=== PATIENT | female | born 1985 | race Caucasian/White ===

== ENCOUNTER 2020-07-05 20:24 | Observation (INO) | payer MEDICAID, OTHER ==
[~2020-07-05] VITALS: Ht 149.9 cm; Wt 61.7 kg
[2020-07-05] MEDS ORDERED: ACETAMINOPHEN EXTRA STRENGTH 500 MG TABLET ONE (21:40)
[2020-07-05] MEDS ORDERED: ACETAMINOPHEN EXTRA STRENGTH 500 MG TABLET PO SCH (21:45)
== END 2020-07-05 22:10 | disposition home or self-care (01) ==
LOC: EDH 20:24 → LDH 20:25
PROVIDERS: ADMIT Specialist; ATTEND Specialist
DX: O26.892 Other specified pregnancy related conditions, second trimester (principal); R10.30 Lower abdominal pain, unspecified; Z87.891 Personal history of nicotine dependence; Z3A.21 21 weeks gestation of pregnancy
CPT/HCPCS: 80305; 81001; 99284; G0378

== ENCOUNTER 2020-07-06 15:41 | Observation (INO) | payer MEDICAID ==
[~2020-07-06] VITALS: Ht 149.9 cm; Wt 60.8 kg
[2020-07-06] MEDS ORDERED: LACTATED RINGERS 1000ML IV SCH (16:15)
[2020-07-06 16:25] LABS: AMPHET/METH SCREEN,URINE NEGATIVE (NEGATIVE); BARBITURATE SCREEN, URINE NEGATIVE (NEGATIVE); BENZODIAZEPINES SCREEN,URINE NEGATIVE (NEGATIVE); CANNABINOID SCREEN,URINE POSITIVE (NEGATIVE); COCAINE SCREEN,URINE NEGATIVE (NEGATIVE); OPIATE SCREEN,URINE NEGATIVE (NEGATIVE); PHENCYCLIDINE SCREEN,URINE NEGATIVE (NEGATIVE)
== END 2020-07-06 18:26 | disposition home or self-care (01) ==
LOC: LDH 15:41
PROVIDERS: ADMIT Specialist; ATTEND Specialist
DX: O60.02 Preterm labor without delivery, second trimester (principal); R10.9 Unspecified abdominal pain; Z3A.21 21 weeks gestation of pregnancy
CPT/HCPCS: 76805; 80305; 96360; G0378 ×2; J7120

== ENCOUNTER 2020-10-26 09:00 | Inpatient (IN) | payer MEDICAID ==
[~2020-10-26] VITALS: Ht 149.9 cm; Wt 70.3 kg
[2020-11-03] MEDS ORDERED: LACTATED RINGERS 1000ML 1,000 ML IV SCH (05:45)
[2020-11-03] MEDS ORDERED: CEFAZOLIN SODIUM 1 GM VIAL IVP PRN (05:45)
[2020-11-03 06:44] LABS: AMPHET/METH SCREEN,URINE NEGATIVE (NEGATIVE); BARBITURATE SCREEN, URINE NEGATIVE (NEGATIVE); BENZODIAZEPINES SCREEN,URINE NEGATIVE (NEGATIVE); CANNABINOID SCREEN,URINE NEGATIVE (NEGATIVE); COCAINE SCREEN,URINE NEGATIVE (NEGATIVE); OPIATE SCREEN,URINE NEGATIVE (NEGATIVE); PHENCYCLIDINE SCREEN,URINE NEGATIVE (NEGATIVE)
[2020-11-03 06:51] LABS: HEMATOCRIT 32.8 % (36-48); MEAN CORPUSCULAR HEMOGLOBIN 28.1 pg (27.0-33.0); MEAN CORPUSCULAR HGB CONC 33.5 g/dL (32.0-36.0); MEAN CORPUSCULAR VOLUME 83.7 fL (79-99); RED BLOOD CELL COUNT(AUTO) 3.92 MIL/uL (4.00-5.50); RED CELL DISTRIBUTION WIDTH 12.9 % (11.0-15.5); WHITE BLOOD COUNT (AUTO) 11.5 K/uL (4.8-10.8)
[2020-11-03 07:37] VITALS: BP 120/80
[2020-11-03] MEDS ORDERED: PNV11TAB5 PO (07:41)
[2020-11-03] MEDS ORDERED: NEOM28OI31 TP (07:42)
[2020-11-03] MEDS ORDERED: OXYTOCIN-LR 20 UNITS/1000 ML 1,000 ML IV ONE ×2 (08:12→09:37)
[2020-11-03] MEDS ORDERED: FENTANYL CITRATE PF 50 MCG/1 ML 2ML VIAL ONE (08:41)
[2020-11-03] MEDS ORDERED: ONDANSETRON HCL 4 MG/2 ML VIAL ONE ×2 (08:41→11:44)
[2020-11-03] MEDS ORDERED: DURAMORPH PF1 MG/ML 10ML AMP IV ONE (08:41)
[2020-11-03] MEDS ORDERED: PHENYLEPHRINE HCL 10 MG/ML 1ML VIAL IV ONE (09:14)
[2020-11-03] MEDS ORDERED: EPHEDRINE SULFATE 50 MG/ML AMPULE ONE (09:19)
[2020-11-03] MEDS ORDERED: DiphenhydrAMINE HCL 50 MG/ML VIAL ONE (09:21)
[2020-11-03] MEDS ORDERED: OXYTOCIN-LR 20 UNITS/1000 ML 1,000 ML IV PRN (11:00)
[2020-11-03] MEDS ORDERED: SODIUM CHLORIDE 0.9% 10 ML VIAL IVP PRN (11:00)
[2020-11-03] MEDS: CEFAZOLIN SODIUM 1 GM VIAL IVP SCH ×2 (11:00→19:01)
[2020-11-03 11:50] VITALS: BP 149/73
[2020-11-03] MEDS: PROMETHAZINE HCL 25 MG/ML 1ML AMPULE IM PRN (12:16)
[2020-11-03] MEDS: MEPERIDINE-PF 75 MG/ML SYG IM PRN (12:16)
[2020-11-03] MEDS: NEOMY SULF/BACITRAC ZN/POLY OINT 30GM TUBE TP SCH ×2 (14:54→21:09)
[2020-11-03 16:41] VITALS: BP 118/69
[2020-11-03] MEDS ORDERED: DiphenhydrAMINE HCL 50 MG/ML VIAL IV PRN (18:15)
[2020-11-03] MEDS ORDERED: ONDANSETRON HCL 4 MG/2 ML VIAL IVP PRN ×2 (18:15→19:15)
[2020-11-03] MEDS ORDERED: EPHEDRINE SULFATE 50 MG/ML AMPULE IVP PRN (19:15)
[2020-11-03] MEDS ORDERED: DiphenhydrAMINE HCL 50 MG/ML VIAL IVP PRN (19:15)
[2020-11-03] MEDS ORDERED: NALOXONE HCL 0.4 MG/1 ML ML IVP PRN ×2 (19:15)
[2020-11-03 19:25] VITALS: BP 111/73
[2020-11-03] MEDS: DEXTROSE 5 %-0.45 % NACL 1,000 ML IV PRN (21:16)
[2020-11-03 22:59] VITALS: BP 122/70
[2020-11-04] MEDS: PROMETHAZINE HCL 25 MG/ML 1ML AMPULE IM PRN (00:43)
[2020-11-04] MEDS: MEPERIDINE-PF 75 MG/ML SYG IM PRN (00:45)
[2020-11-04] MEDS: CEFAZOLIN SODIUM 1 GM VIAL IVP SCH (02:55)
[2020-11-04 03:11] VITALS: BP 107/57
[2020-11-04] MEDS: DEXTROSE 5 %-0.45 % NACL 1,000 ML IV PRN (04:39)
[2020-11-04 05:12] LABS: HEPATITIS Bs ANTIGEN SCREEN P Negative (Negative)
[2020-11-04 06:15] LABS: MEAN CORPUSCULAR HEMOGLOBIN 28.1 pg (27.0-33.0); MEAN CORPUSCULAR HGB CONC 33.2 g/dL (32.0-36.0); MEAN CORPUSCULAR VOLUME 84.6 fL (79-99); RED BLOOD CELL COUNT(AUTO) 3.31 MIL/uL (4.00-5.50); RED CELL DISTRIBUTION WIDTH 13.4 % (11.0-15.5); WHITE BLOOD COUNT (AUTO) 9.7 K/uL (4.8-10.8)
[2020-11-04 07:51] VITALS: BP 106/70
[2020-11-04] MEDS ORDERED: BISACODYL 10 MG SUPP.RECT RC PRN (08:00)
[2020-11-04] MEDS ORDERED: IBUPROFEN 600 MG TABLET PO PRN (08:00)
[2020-11-04] MEDS ORDERED: ACETAMINOPHEN EXTRA STRENGTH 500 MG TABLET PO PRN (08:00)
[2020-11-04] MEDS ORDERED: LANOLIN 30GM OINTMENT TP PRN (08:00)
[2020-11-04] MEDS ORDERED: HYDROCODONE/ACETAMINOPHEN 5/325 MG TAB PO PRN (08:00)
[2020-11-04] MEDS ORDERED: DIPH,PERTUSS(ACELL),TET VAC/PF 0.5 ML VIAL IM ONE ×2 (08:15→18:25)
[2020-11-04] MEDS ORDERED: HYDROCODONE/ACETAMINOPHEN 5/325 MG TAB ONE (08:15)
[2020-11-04] MEDS ORDERED: SIMETHICONE 80 MG TAB.CHEW ONE (08:15)
[2020-11-04] MEDS ORDERED: DOCUSATE SODIUM 100 MG CAP PO ONE (08:15)
[2020-11-04] MEDS: NEOMY SULF/BACITRAC ZN/POLY OINT 30GM TUBE TP SCH ×3 (08:22→22:33)
[2020-11-04] MEDS: DOCUSATE SODIUM 100 MG CAP PO SCH ×2 (09:00→21:12)
[2020-11-04 11:43] VITALS: BP 101/63
[2020-11-04] MEDS: SIMETHICONE 80 MG TAB.CHEW PO PRN ×3 (12:46→21:13)
[2020-11-04] MEDS: IBUPROFEN 800 MG TAB PO SCH ×2 (12:47→21:12)
[2020-11-04 16:21] VITALS: BP 140/74
[2020-11-04] MEDS: ACETAMINOPHEN-CODEINE 300/30MG TAB PO PRN (19:00)
[2020-11-04] MEDS ORDERED: ONDANSETRON HCL 4 MG/2 ML VIAL IVP PRN (19:15)
[2020-11-04 19:31] VITALS: BP 116/68
[2020-11-04 23:10] VITALS: BP 103/48
[2020-11-05] MEDS: ACETAMINOPHEN-CODEINE 300/30MG TAB PO PRN ×2 (00:49→06:56)
[2020-11-05 03:18] VITALS: BP 144/75
[2020-11-05 04:13] VITALS: BP 158/84
[2020-11-05] MEDS: IBUPROFEN 800 MG TAB PO SCH (04:25)
[2020-11-05 04:48] VITALS: BP 122/64
[2020-11-05 06:20] VITALS: BP 113/65
[2020-11-05 07:17] VITALS: BP 105/62
[2020-11-05] MEDS: SIMETHICONE 80 MG TAB.CHEW PO PRN (09:48)
[2020-11-05] MEDS: NEOMY SULF/BACITRAC ZN/POLY OINT 30GM TUBE TP SCH (09:48)
[2020-11-05] MEDS: DOCUSATE SODIUM 100 MG CAP PO SCH (09:48)
[2020-11-05 11:29] VITALS: BP 97/58
== END 2020-11-05 11:45 | disposition home or self-care (01) | DRG 540 ==
LOC: LDH 11-03 05:32 → WSH 11-03 11:45
PROVIDERS: ADMIT Specialist; ATTEND Specialist
PROC: 10D00Z1 Extraction of Products of Conception, Low, Open Approach (ICD-10-PCS; 2020-11-03)
PROC: 0UB70ZZ Excision of Bilateral Fallopian Tubes, Open Approach (ICD-10-PCS; principal; 2020-11-03 07:30)
PROC: 3E0234Z Introduction of Serum, Toxoid and Vaccine into Muscle, Percutaneous Approach (ICD-10-PCS; 2020-11-04)
DX: O34.211 Maternal care for low transverse scar from previous cesarean delivery (principal); Z3A.39 39 weeks gestation of pregnancy; Z37.0 Single live birth; Z30.2 Encounter for sterilization; O99.830 Other infection carrier state complicating pregnancy; L03.311 Cellulitis of abdominal wall; Z20.828 Contact with and (suspected) exposure to other viral communicable diseases; Z23 Encounter for immunization
CPT/HCPCS: 36415; 80305; 85027; 86592; 86850; 86900; 86901; 87340; 88302; 90715; G0378; J0690; J1200; J2175; J2274; J2370; J2405; J2550; J2590; J3010; J3490; J7120; U0003

== ENCOUNTER 2022-11-13 13:44 | Emergency (ER) | payer OTHER, MEDICAID ==
[~2022-11-13] VITALS: Ht 152.4 cm; Wt 63.5 kg
[~2022-11-13 13:44] MED LIST: NEOM28OI31 TP; PNV11TAB5 PO
[2022-11-13 18:06] VITALS: BP 132/88
[2022-11-13] MEDS ORDERED: TIZA4CAP8 PO (18:28)
== END 2022-11-13 18:35 | disposition home or self-care (01) ==
LOC: EDH 13:44
DX: S16.1XXA Strain of muscle, fascia and tendon at neck level, initial encounter (principal); V89.2XXA Person injured in unspecified motor-vehicle accident, traffic, initial encounter; Y93.89 Activity, other specified; Y92.89 Other specified places as the place of occurrence of the external cause; Y99.8 Other external cause status
CPT/HCPCS: 73030

== ENCOUNTER → 2023-03-23 | Outpatient (CLI) | payer MEDICAID ==
[~2023-03-23] MED LIST changes: +TIZA4CAP8 PO
== END | disposition home or self-care (01) ==
LOC: RAH 11:28
PROVIDERS: ATTEND Family Medicine Sports Medicine
DX: K76.0 Fatty (change of) liver, not elsewhere classified (principal); R10.31 Right lower quadrant pain
CPT/HCPCS: 74176

== ENCOUNTER → 2023-07-21 | Outpatient (CLI) | payer MEDICAID | END | disposition home or self-care (01) | LOC: RAH 09:23 | PROVIDERS: ATTEND Internal Medicine Gastroenterology | DX: R10.11 Right upper quadrant pain (principal) | CPT/HCPCS: 76700 ==

== ENCOUNTER → 2023-07-26 | Outpatient (CLI) | payer MEDICAID | END | disposition home or self-care (01) | LOC: RAH 10:56 | PROVIDERS: ATTEND Internal Medicine Gastroenterology | DX: R10.11 Right upper quadrant pain (principal) | CPT/HCPCS: 78227; A9537 ==

== ENCOUNTER 2024-05-20 16:55 | Emergency (ER) | payer MEDICAID, OTHER ==
[~2024-05-20] VITALS: Ht 152.4 cm; Wt 61.2 kg
[2024-05-20 16:57] VITALS: BP 124/69; PULSE 72; RESP 16
[2024-05-20] MEDS ORDERED: ERYT1OIN7 OP (19:24)
[2024-05-20] MEDS: 0.9%NACL 1000ML 1,000 ML IV STA (19:31)
[2024-05-20] MEDS: METOCLOPRAMIDE 10 MG/2 ML VIAL IVP STA (19:31)
[2024-05-20] MEDS: KETOROLAC 15MG/ML VIAL (15MG/ML) IV ONE (19:32)
== END 2024-05-20 20:19 | disposition home or self-care (01) ==
LOC: EDH 16:55
DX: G43.909 Migraine, unspecified, not intractable, without status migrainosus (principal); H01.006 Unspecified blepharitis left eye, unspecified eyelid; Z79.899 Other long term (current) drug therapy; Z98.890 Other specified postprocedural states
CPT/HCPCS: 99284; 96374; 96375; J7030; J2765; J1885